=== PATIENT | male | born 1995 | race Caucasian/White ===

== ENCOUNTER 2020-05-21 21:05 | Emergency (ER) | payer MEDICAID, SELFPAY ==
[2020-05-21 21:08] VITALS: BP 137/105; PULSE 109; RESP 20; TEMP 36.8; O2SAT 97
--- NOTE | 2020-05-21 21:55 | ED.WOUNDLAC ---
HPI - Wound/Laceration General Chief Complaint: Wound/Laceration Stated Complaint: dog bite to face Time Seen by Provider: 05/21/20 21:50 History of Present Illness HPI narrative: Dog bite to the upper lip. Minimal pain. Bleeding controlled. Known dog, up to date on shots. He believes that he had a tetanus shot last year. Related Data Allergies Allergy/AdvReac Type Severity Reaction Status Date / Time No Known Allergies Allergy Mild Verified 05/21/20 21:10 Review of Systems Review of Systems: All systems reviewed & are unremarkable except as noted in HPI and below [facility] Past Medical History Medical History (Updated 05/22/20 @ 02:51 by Francisco Persaud MD) Healthy adult Social History Social History Smoking status: Never smoker Exam Const: General: healthy appearing, no acute distress and alert Orientation/consciousness: patient oriented x3 HENMT: Other: parallel lacerations to the upper lip extending through the torie border. Resp: Effort & Inspection: normal respiratory effort Auscultation: clear to auscultation bilaterally Cardio: Rate: regular rate Rhythm: regular rhythm Course Vital Signs Vital signs: Vital Signs Temperature 36.8 C 05/21/20 21:08 Pulse Rate 109 H 05/21/20 21:08 Respiratory Rate 20 05/21/20 21:08 Blood Pressure 137/105 H 05/21/20 21:08 Pulse Oximetry 97 05/21/20 21:08 Temperature 36.9 C 05/21/20 23:17 Pulse Rate 94 05/21/20 23:17 Respiratory Rate 16 05/21/20 23:17 Blood Pressure 148/99 H 05/21/20 23:17 Pulse Oximetry 100 05/21/20 23:17 Procedures Laceration Laceration 1: Date: 05/21/20 Time: 22:58 Site: lip Size (cm): 3 Description: linear Depth: simple, single layer Local Anesthetic: lidocaine 1% and with epi Amount of anesthesia used (mL): 3 Pre-repair: irrigated ====== Skin Level ====== Skin layer closed with: other (Fast Gut) Size (cm): 5-0 Number of sutures: 5 Technique: simple, interrupted ====== Subcutaneous Layer ====== ====== Muscle Layer ====== ====== Tendon Layer ====== Laceration 2: Date: 05/21/20 Time: 23:00 Site: lip Size (cm): 2 Description: linear Depth: simple, single layer Local Anesthetic: lidocaine 1% and with epi Amount of anesthesia used (mL): 3 Pre-repair: wound explored and irrigated ====== Skin Level ====== Skin layer closed with: other (fast gut) Size (cm): 5-0 Number of sutures: 4 ====== Subcutaneous Layer ====== ====== Muscle Layer ====== ====== Tendon Layer ====== Discharge Plan Discharge Clinical Impression: Dog bite, Laceration of lip Patient Disposition: Home, Self-Care Condition: Stable Instructions: Antibiotic Form, Facial Laceration (ED) Prescriptions: New amoxicillin-pot clavulanate [Augmentin] 875-125 mg tablet 1 tablet PO Q12H Qty: 10 RF: 0 Follow-up/Referrals: Elbert Jacobsen MD [Primary Care Provider] -
[2020-05-21] MEDS: AMOXICILLIN/CLAVULANATE K 875-125 MG TAB 1 TABLET PO (23:03)
[2020-05-21 23:17] VITALS: BP 148/99; PULSE 94; RESP 16; TEMP 36.9; O2SAT 100
== END 2020-05-21 23:17 | disposition home or self-care (01) ==
PROVIDERS: Emergency Provider Emergency Medicine; PCP Family Medicine
DX: S01.551A Open bite of lip, initial encounter (principal); W54.0XXA Bitten by dog, initial encounter
CPT/HCPCS: 12013; 99283; A9270